=== PATIENT | male | born 1970 ===

== ENCOUNTER 2018-06-13 10:22 | Inpatient (IN) | payer OTHER ==
[2018-06-13 10:23] VITALS: BMI 20.7
[2018-06-13 11:59] LABS: BASO # 0.1 K/uL (0.0-0.2); HEMOGLOBIN 14.4 g/dL (12.0-18.0); LYMPH # 1.5 K/uL (1.0-4.3); LYMPH % 13.6 % (20.0-40.0); MEAN CORPUSCULAR HEMOGLOBIN 31.1 pg (27.0-31.0); MEAN CORPUSCULAR HGB CONC 33.8 g/dL (33.0-37.0); MEAN PLATELET VOLUME 11.1 fl (7.2-11.7); MONO # 0.8 K/uL (0.0-0.8); NEUT # 8.4 K/uL (1.8-7.0); NEUT % 78.4 % (50.0-75.0); NRBC % 0.1 % (0.0-0.0); RBC 4.63 Mil/uL (4.40-5.90); RED CELL DISTRIBUTION WIDTH 15.2 % (11.5-14.5); WHITE BLOOD COUNT 10.8 K/uL (4.8-10.8)
[2018-06-13 12:00] LABS: ALB/GLOB RATIO 1.1 (1.0-2.1); ALBUMIN 4.5 g/dL (3.5-5.0); BLOOD UREA NITROGEN 21 mg/dl (9-20); CALCIUM 9.4 mg/dL (8.4-10.2); GFR NON-AFRICAN AMERICAN > 60
--- NOTE | 2018-06-13 12:19 | ED PDOC ---
HPI: Psych/Substance Abuse Time Seen by Provider: 06/13/18 10:48 Chief Complaint (Nursing): Psychiatric Evaluation Chief Complaint (Provider): medical and psych clearance for incarceration Additional Complaint(s): 48 y/o M with hx of bipolar disorder and substance abuse who was brought in by Erwin SIMPSON for medical and psych clearance for incarceration. Pt states that he has a hx of Bipolar disorder but that this diagnosis was only given to him b/c he was pretending to be crazy in the past and he does not take medications. Denies any medical history such as DM, HTN. He admits to using heroine intermittently and some cocaine as well as alcohol. Denies using any drugs or alcohol today. Past Medical History Reviewed: Historical Data, Nursing Documentation, Vital Signs Vital Signs: Last Vital Signs Temp 98.7 F 06/13/18 11:52 Pulse 77 06/13/18 11:52 Resp 20 06/13/18 11:52 BP 137/63 06/13/18 11:52 Pulse Ox 97 06/13/18 11:52 - Medical History PMH: Bipolar Disorder - Family History Family History: States: Unknown Family Hx - Home Medications Home Medications: Ambulatory Orders Medication Instructions Recorded No Known Home Med 06/13/18 - Allergies Allergies/Adverse Reactions: Allergies Allergy/AdvReac Type Severity Reaction Status Date / Time No Known Allergies Allergy Verified 06/13/18 10:30 Review of Systems Constitutional: Negative for: Fever, Chills Gastrointestinal: Negative for: Nausea, Vomiting Physical Exam - Reviewed Nursing Documentation Reviewed: Yes Vital Signs Reviewed: Yes - Physical Exam Appears: Positive for: Non-toxic Skin: Positive for: Jaundice. Negative for: Normal Color (multiple excoriation on left anterior forearm and abrasion on Right MCP as well as Right posterior forearm near elbow all with associated erythema and increased warmth) Eye Exam: Positive for: EOMI, PERRL, Scleral icterus (b/l). Negative for: Periorbital swelling Neck: Positive for: Normal, Painless ROM Cardiovascular/Chest: Positive for: Regular Rate, Rhythm Respiratory: Positive for: Normal Breath Sounds Gastrointestinal/Abdominal: Positive for: Normal Exam. Negative for: Tenderness Extremity: Positive for: Normal ROM Neurological/Psych: Positive for: Awake, Alert, Oriented - Laboratory Results Result Diagrams: 06/13/18 11:40 06/13/18 11:40 Lab Results: Total Bilirubin 8.1 mg/dl (0.2-1.3) H 06/13/18 11:40 Alkaline Phosphatase 264 U/L (38-126) H 06/13/18 11:40 Total Protein 8.5 G/DL (6.3-8.2) H 06/13/18 11:40 Albumin 4.5 g/dL (3.5-5.0) 06/13/18 11:40 Globulin 4.0 gm/dL (2.2-3.9) H 06/13/18 11:40 Albumin/Globulin Ratio 1.1 (1.0-2.1) 06/13/18 11:40 - ECG O2 Sat by Pulse Oximetry: 97 Medical Decision Making Medical Decision Making: Urine drug screen CBC, CMP urine dip Keflex 500mg PO x 1 for cellulitis on B/L arms. Urine dip: nitrate: negative; LE: nitrate; blood: moderate 14:40: pt tore out IV and refusing to allow nurse or myself to evaluate him and would not cooperate with EKG. I attempted to diffuse situation by speaking calmly to patient and asking if he would cooperate. Pt looking at camera in room and verbally threatening staff. Pt refusing to listen to lab results or reasoning for need for admission. Pt cannot be cleared medically for incarceration at this time. After several attempts to de-escalate, pt remained agitated. Haldol 5mg IM and Ativan 2mg IM ordered for patient safety. Abdomen U/S, limited: FINDINGS: LIVER: Measures 16.2 cm in length. Normal echogenicity of the liver parenchyma. There is diffuse increased periportal echogenicity. No mass. No intrahepatic bile duct dilatation. GALLBLADDER: There are no gallstones, wall thickening or pericholecystic fluid. The sonographic Machuca's sign is negative. COMMON BILE DUCT: Measures 4.0 mm. No stones. No dilatation. PANCREAS: Unremarkable as visualized. No mass. No ductal dilatation. RIGHT KIDNEY: Measures 9.8 cm in length. Normal echogenicity. No calculus, mass, or hydronephrosis. AORTA: No aneurysmal dilatation. IVC: Unremarkable. OTHER FINDINGS: None . IMPRESSION: Mild hepatomegaly. Diffuse increased periportal echogenicity is nonspecific and could be seen with hepatitis and secondary to other systemic etiologies. No cholelithiasis or biliary dilatation. 16:30: patient re-assessed. Sleeping comfortably. Case d/w Dr. Cobos. Pt to be admitted to Med/Surg for acute hepatitis. Pt will need psychiatry consult for clearance for incarceration when cleared medically. 17:15: spoke with Dr. Avila of GI for consult. Pt will be be seen as an inpatient. Elevated LFTs may be due to PCP use vs Hepatatitis. Disposition - Clinical Impression Clinical Impression: Acute hepatitis - Patient ED Disposition Is Patient to be Admitted: Yes Discussed With DrJuan: Filiberto Cobso Counseled Patient/Family Regarding: Studies Performed, Diagnosis - Disposition Disposition: Transfer of Care Disposition Time: 16:27 Condition: FAIR
[2018-06-13 12:54] LABS: ALT/SGPT 1906 U/L (21-72); AST/SGOT 1460 U/L (17-59)
[2018-06-13 13:43] LABS: BARBITURATES, UR NEGATIVE (NEGATIVE); BENZODIAZEPINES, UR NEGATIVE (NEGATIVE); OPIATES, UR NEGATIVE (NEGATIVE); PHENCYCLIDINE, UR POSITIVE (NEGATIVE)
[2018-06-13 13:56] LABS: SQUAMOUS EPITHIAL < 1 /hpf (0-5); URINE BACTERIA OCC (<OCC); URINE BILIRUBIN SMALL (NEGATIVE); URINE BLOOD MODERATE (NEGATIVE); URINE CLARITY SLIGHTY-CLOUDY (Clear); URINE COLOR AMBER (YELLOW); URINE GLUCOSE (UA) NEG (NEGATIVE); URINE LEUKOCYTE ESTERASE NEG Leu/uL (Negative); URINE PROTEIN 30 mg/dL (NEGATIVE)
[2018-06-13 14:03] LABS: PROTHROMBIN TIME 11.5 Seconds (9.8-13.1)
[2018-06-13 14:06] LABS: PARTIAL THROMBOPLASTIN TIME 33.7 Seconds (25.6-37.1)
--- NOTE | 2018-06-13 14:27 | US ---
Date of service: 06/13/2018 HISTORY: elevated LFTs, evaluate for obstruction COMPARISON: None. TECHNIQUE: Grayscale imaging was performed. FINDINGS: LIVER: Measures 16.2 cm in length. Normal echogenicity of the liver parenchyma. There is diffuse increased periportal echogenicity. No mass. No intrahepatic bile duct dilatation. GALLBLADDER: There are no gallstones, wall thickening or pericholecystic fluid. The sonographic Machuca's sign is negative. COMMON BILE DUCT: Measures 4.0 mm. No stones. No dilatation. PANCREAS: Unremarkable as visualized. No mass. No ductal dilatation. RIGHT KIDNEY: Measures 9.8 cm in length. Normal echogenicity. No calculus, mass, or hydronephrosis. AORTA: No aneurysmal dilatation. IVC: Unremarkable. OTHER FINDINGS: None . IMPRESSION: Mild hepatomegaly. Diffuse increased periportal echogenicity is nonspecific and could be seen with hepatitis and secondary to other systemic etiologies. No cholelithiasis or biliary dilatation.
[2018-06-13] MEDS ORDERED: Cephalexin Susp 250 MG/5 ML PO STA (16:24)
[2018-06-13] MEDS ORDERED: Tdap Vaccine 0.5 ml Vial (10-64 yrs) IM ONE ×2 (17:00→17:22)
[2018-06-13 17:09] LABS: LIPASE 67 U/L (23-300)
--- NOTE | 2018-06-13 17:16 | RAD ---
Date of service: 06/13/2018 HISTORY: shortness of breath, cough COMPARISON: No prior. FINDINGS: LUNGS: The lungs are well inflated and clear. PLEURA: No pleural effusions or pneumothorax. CARDIOVASCULAR: The heart is normal in size. No aortic atherosclerotic calcifications present. OSSEOUS STRUCTURES: Within normal limits for the patient's age. VISUALIZED UPPER ABDOMEN: Normal. OTHER FINDINGS: None. IMPRESSION: No active pulmonary disease.
[2018-06-13 17:17] LABS: HEPATITIS B SURFACE AG Negative (NEGATIVE)
[2018-06-13 17:22] LABS: HEPATITIS A IGM NEGATIVE (NEGATIVE); HEPATITIS B CORE AB NEGATIVE (NEGATIVE)
[2018-06-13 17:53] LABS: HEPATITIS C ANTIBODY REACTIVE (NEGATIVE)
[2018-06-13] MEDS: Sodium Chloride 0.9% 1,000 ML IV SCH (21:15)
--- NOTE | 2018-06-14 09:28 | CARD ---
APPROVED REPORT Date of service: 06/13/2018 EKG Measurement Heart [id number] <Conclusion> Normal sinus rhythm with sinus arrhythmia Otherwise normal ECG
[2018-06-14] MEDS: Enoxaparin 40 mg Syringe SC SCH (09:51)
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
[2018-06-14] MEDS: Sodium Chloride 0.9% 1,000 ML IV SCH (13:38)
[2018-06-14 15:26] LABS: HEMOGLOBIN 11.6 g/dL (12.0-18.0); MEAN CELL VOLUME 91.6 fl (80.0-94.0); MEAN CORPUSCULAR HEMOGLOBIN 31.3 pg (27.0-31.0); MEAN CORPUSCULAR HGB CONC 34.2 g/dL (33.0-37.0); RBC 3.7 Mil/uL (4.40-5.90); RED CELL DISTRIBUTION WIDTH 14.8 % (11.5-14.5); WHITE BLOOD COUNT 7.3 K/uL (4.8-10.8)
[2018-06-14 15:46] LABS: ALB/GLOB RATIO 1.1 (1.0-2.1); ALBUMIN 3.3 g/dL (3.5-5.0); ALT/SGPT 1209 U/L (21-72); AST/SGOT 838 U/L (17-59); BLOOD UREA NITROGEN 18 mg/dl (9-20); CALCIUM 8.3 mg/dL (8.4-10.2); GFR NON-AFRICAN AMERICAN > 60
--- NOTE | 2018-06-14 19:58 | HP ---
CHIEF COMPLAINT: Abnormal liver function test. HISTORY OF PRESENT ILLNESS: This is a 48-year-old male with history of substance abuse and questionable bipolar disorder for which the patient is not on any medication, who was brought in by police for medical and psychiatry evaluation. During workup, the patient was found to have abnormal liver function tests and the patient was admitted for further management. The patient is uncooperative, not able to provide informative history. PAST MEDICAL HISTORY: Questionable, positive for bipolar disorder although according to the patient, the patient was diagnosed with disease after the patient was pretending to be crazy in the past. PAST SURGICAL HISTORY: Unremarkable. PERSONAL HISTORY: The patient has a long history of substance abuse. No alcohol or smoking. MEDICATIONS: The patient is not on any medication. ALLERGIES: THE PATIENT IS NOT ALLERGIC TO ANY MEDICATION. FAMILY HISTORY: Noncontributory. REVIEW OF SYSTEMS: Available history from nursing staff did say that the patient denies any specific complaints. Review of systems is not reliable but the patient denied any chest pain, shortness of breath, nausea, vomiting, diarrhea, constipation, any knee joint or extremity pain. Review of systems of all other organ systems is unremarkable, but as mentioned earlier, is unreliable. PHYSICAL EXAMINATION: GENERAL: A well-built, well-nourished 48-year-old male in no acute distress. VITAL SIGNS: Stable. Temperature 97.8, pulse 86, respirations 18, blood pressure 112/71, and saturation 96%. HEENT: Pupils are reacting to light. No JVD. No thyromegaly. No lymphadenopathy. No nystagmus. Normocephalic. Atraumatic skull. HEART: S1 and S2; normal and regular. No significant murmur, gallop, or rub is heard. LUNGS: Shows good bilateral air exchange. No rales or rhonchi. ABDOMEN: Soft, nontender. No organomegaly. No fluid. Bowel sounds are present and normal. EXTREMITIES: No edema, no calf swelling. No tenderness. No acute ischemia. CENTRAL NERVOUS SYSTEM: Examination is essentially unchanged and there is no sign of any acute gross focal, motor, or sensory neurological deficits. DIAGNOSTIC DATA: Available diagnostic data reviewed. Abdominal ultrasound shows liver with size of 16.2 cm in length. Negative Machuca's sign. Chest x-ray is clear. Urine toxicology is positive for phencyclidine and marijuana. WBC 10.8, hemoglobin 14.4, hematocrit 42.6, platelets 232, PT/INR is unremarkable. Sodium 143, potassium 3.8, chloride 104, bicarbonate 26, BUN 21, creatinine 1. AST level is 1460, ALT level is 1906. Alkaline phosphatase is 264. LDH level is 2271. Ammonia level is 34. Urine analysis is unremarkable except toxicology. ADMITTING IMPRESSION: Acute hepatitis. Questionable bipolar disorder. PLAN: As ordered. Case and plan discussed with the patient. Filiberto Cobos MD
[2018-06-15] MEDS: Sodium Chloride 0.9% 1,000 ML IV SCH ×2 (05:26→22:27)
[2018-06-15 07:48] LABS: HEMOGLOBIN 12.2 g/dL (12.0-18.0); MEAN CELL VOLUME 93.3 fl (80.0-94.0); MEAN CORPUSCULAR HEMOGLOBIN 31.7 pg (27.0-31.0); RBC 3.84 Mil/uL (4.40-5.90); WHITE BLOOD COUNT 5.5 K/uL (4.8-10.8)
[2018-06-15 08:04] LABS: ALB/GLOB RATIO 1.1 (1.0-2.1); ALBUMIN 3.4 g/dL (3.5-5.0); BLOOD UREA NITROGEN 12 mg/dl (9-20); CALCIUM 8.4 mg/dL (8.4-10.2); GFR NON-AFRICAN AMERICAN > 60
[2018-06-15 08:13] LABS: ALT/SGPT 1194 U/L (21-72); AST/SGOT 759 U/L (17-59)
[2018-06-15] MEDS: Enoxaparin 40 mg Syringe SC SCH (08:56)
--- NOTE | 2018-06-15 10:02 | PN ---
DATE: 06/15/2018 SUBJECTIVE: The patient is seen and examined. Interim events noted. Consults noted and appreciated. Psychiatric followup and intervention noted and appreciated. Gastroenterology consult is explained. The patient feels okay. Denies any abdominal pain, nausea, or vomiting. No diarrhea. PHYSICAL EXAMINATION: GENERAL: The patient is in no acute distress. VITAL SIGNS: Stable. HEART: S1 and S2 normal and regular. LUNGS: Good bilateral air exchange. ABDOMEN: Soft and nontender. No organomegaly. No fluids. Bowel sounds are plus and normal. No sign of acute abdomen. No guarding. No rigidity. No rebound. EXTREMITIES: No edema. No calf swelling. No tenderness. No acute ischemia. CENTRAL NERVOUS SYSTEM: Essentially unchanged. DIAGNOSTIC DATA: Available diagnostic data reviewed. ASSESSMENT AND PLAN: Overall, the patient is medically stable. Liver functions are improving. Today's labs are pending. Gastrointestinal consult is pending. Plan as ordered. Case and plan discussed with the patient. The patient remains in police custody. Plan as ordered. Filiberto Cobos MD
[2018-06-16 07:20] LABS: ALBUMIN 3.4 g/dL (3.5-5.0); AST/SGOT 632 U/L (17-59); BLOOD UREA NITROGEN 12 mg/dl (9-20); CALCIUM 8.6 mg/dL (8.4-10.2); GFR NON-AFRICAN AMERICAN > 60
[2018-06-16 07:22] LABS: HEMOGLOBIN 12.5 g/dL (12.0-18.0); MEAN CELL VOLUME 93.5 fl (80.0-94.0); MEAN CORPUSCULAR HEMOGLOBIN 31.7 pg (27.0-31.0); MEAN CORPUSCULAR HGB CONC 33.9 g/dL (33.0-37.0); RBC 3.93 Mil/uL (4.40-5.90); WHITE BLOOD COUNT 5.5 K/uL (4.8-10.8)
[2018-06-16 07:36] VITALS: BP 112/75; PULSE 77; RESP 20; TEMP 97.7; O2SAT 98
[2018-06-16 07:37] LABS: ALT/SGPT 1095 U/L (21-72)
[2018-06-16 07:49] LABS: HEPATITIS B SURFACE AG Negative (NEGATIVE)
[2018-06-16 07:54] LABS: HEPATITIS A IGM NEGATIVE (NEGATIVE); HEPATITIS B CORE AB NEGATIVE (NEGATIVE)
--- NOTE | 2018-06-16 08:19 | CON ---
DATE: 06/14/2018 REFERRING DOCTOR: Filiberto Cobos MD REASON FOR CONSULTATION: Elevated LFTs. HISTORY OF PRESENT ILLNESS: This is a 48-year-old man with history of bipolar disease who has come in for for clearance for incarceration. GI was called because of evaluation of . The patient says that he does drugs, he smokes, and drinks heavily and never had any problems with liver before and at this point has no GI complaints. Presently lying in bed in no apparent distress. PAST MEDICAL HISTORY: As above. PAST SURGICAL HISTORY: As above. MEDICATIONS: Have been reviewed. REVIEW OF SYSTEMS: All other systems have been reviewed and negative apart from the HPI. PHYSICAL EXAMINATION: VITAL SIGNS: Here in the hospital are grossly unremarkable. HEENT: Head: Normocephalic and atraumatic. Eyes: Pupils are equal and reactive to light bilaterally. There is conjunctival icterus. No pallor. LUNGS: Coarse breath sounds bilaterally. HEART: S1 and S2. Regular rate and rhythm. No murmurs appreciated. ABDOMEN: Soft, nontender. Bowel sounds present. No rebound. No guarding. RECTAL: Deferred. EXTREMITIES: Pulse present bilaterally. SKIN: Warm, dry and intact. NEUROLOGICAL: Alert and oriented x3. LABORATORY DATA: Labs and radiology have been reviewed. WBC is 10.8, hemoglobin of 14.4, INR 1, bilirubin 9.1, AST and ALT are 1462 and 1906. Alkaline phosphatase 264, LDH is 2271. U-tox is positive for phencyclidine and cannabinoids and is positive for hepatitis C antibody. Ultrasound is grossly unremarkable. ASSESSMENT AND PLAN: This is a 48-year-old man with elevation of liver function tests. This is more likely secondary to drug-induced, likely the phencyclidine and/or underlying hepatitis C infection. Recommend hepatitis C viral level and can be safely discharged back to followup with their doctors there. From gastrointestinal standpoint, I will advise to avoid drugs. Thank you for the consult. Misha Avila MD/ PhD cc: Filiberto Cobos MD
[2018-06-16] MEDS: Enoxaparin 40 mg Syringe SC SCH (08:57)
[2018-06-16 09:37] LABS: HEPATITIS C ANTIBODY REACTIVE (NEGATIVE)
--- NOTE | 2018-06-16 20:21 | PN ---
DATE: 06/16/2018 SUBJECTIVE: The patient seen and examined. Interim events noted. Consults noted and appreciated. Gastroenterology followup and intervention noted and appreciated. The patient remains in regular medical floor in police custody. Denies any specific complaints. No chest pain or shortness of breath. PHYSICAL EXAMINATION: GENERAL: The patient is in no acute distress. VITAL SIGNS: Stable. Temperature 97.7, pulse 77, respirations 20, blood pressure 112/75, saturation 98%. HEART: S1 and S2 normal and regular. LUNGS: Good bilateral air exchange. ABDOMEN: Soft, nontender. No organomegaly. No fluid. Bowel sounds are plus and normal. No sign of any acute abdomen. No guarding. No rigidity. No rebound. EXTREMITIES: No edema. No calf swelling. No tenderness. No acute ischemia. CENTRAL NERVOUS SYSTEM: Exam is essentially unchanged. DIAGNOSTIC DATA: Available diagnostic data reviewed. WBC 5.5, hemoglobin 12.5, hematocrit 36.8, platelets 202. SMA-7 is unremarkable. SMA-12 reveals AST of 632 and ALT of 1095, which is coming down. ASSESSMENT AND PLAN: Gastroenterology intervention noted and appreciated. The patient is cleared by Gastroenterology for discharge. Hepatitis profile is negative except hepatitis C, which is reactive. The patient was advised to follow up with the patient's primary care physician and gastrointestinal doctor. Case and plan was explained to the patient. The patient is medically stable. We will probably discharge the patient today into police custody. Plan as ordered. Filiberto Cobos MD
== END 2018-06-16 14:24 | disposition home or self-care (01) | DRG 205 ==
LOC: H.ER 10:22 → H.ERHOLD 16:27 → H.MEDSURG1 18:30
PROVIDERS: ADMIT Internal Medicine; ATTEND Internal Medicine
PROC: 3E0234Z Introduction of Serum, Toxoid and Vaccine into Muscle, Percutaneous Approach (ICD-10-PCS; principal; 2018-06-13)
DX: B19.20 Unspecified viral hepatitis C without hepatic coma (principal); F19.94 Other psychoactive substance use, unspecified with psychoactive substance-induced mood disorder; F16.10 Hallucinogen abuse, uncomplicated; F12.10 Cannabis abuse, uncomplicated; F31.9 Bipolar disorder, unspecified; F41.9 Anxiety disorder, unspecified; Z23 Encounter for immunization